=== PATIENT | female | born 1980 | race Caucasian/White ===

== ENCOUNTER 2016-08-15 15:43 | Inpatient (IN) | payer OTHER ==
[~2016-08-15] VITALS: Ht 157.5 cm; Wt 49.9 kg
[~2016-08-15 15:43] MED LIST: BUSPIRONE15 MG PO; HYDROXYZINE PAM25 MG PO; IBUPROFEN800 MG PO; PERCOCET 325 MG1 TA2 PO; SERTRALINE HYDR50 MG PO
--- NOTE | 2016-08-15 16:05 | NUR ---
TRIAGE: PT TO ER C/C PAIN TO R FLANK AND ABDOMEN, ONSET SUNDAY, CONSTANT SINCE ONSET. HX OF KIDNEY STONES, FEELS SAME. +INTERMITTENT NAUSEA, VOMITED SUNDAY BUT NOT SINCE. -DIARRHEA. LNBM YESTERDAY. REPORTS PAIN WITH URINATION AND HEMATURIA ONSET TODAY.
--- NOTE | 2016-08-15 16:06 | NUR ---
Informed waiting has been performed.
--- NOTE | 2016-08-15 16:16 | ED GI/GU/ABDOMINAL COMPLAINT ---
History of Present Illness General Chief Complaint: Abdominal Pain/Flank Pain Stated Complaint: R FLANK PAIN, NAUSEA,FEVER H/O KIDNEY STONES Source: patient, old records Exam Limitations: no limitations Allergies Coded Allergies: hydrocodone (From VICODIN) (Intermediate, NAUSEA 08/15/16) Reconcile Medications No Known Home Medications Triage Note: TRIAGE: PT TO ER C/C PAIN TO R FLANK AND ABDOMEN, ONSET SUNDAY, CONSTANT SINCE ONSET. HX OF KIDNEY STONES, FEELS SAME. +INTERMITTENT NAUSEA, VOMITED SUNDAY BUT NOT SINCE. -DIARRHEA. LNBM YESTERDAY. REPORTS PAIN WITH URINATION AND HEMATURIA ONSET TODAY. Triage Nurses Notes Reviewed? yes ? n Is pt currently ? No HPI: Patient is a 36-year-old female presents complaining of right flank pain. Pain onset on Sunday. Patient is a sharp pain feels similar to his kidney stones. Pain is currently severe, no exacerbating or alleviating factors. Patient has not taken any medication for her symptoms. Associated nausea and vomiting. Patient reports she noticed hematuria today. Intermittent subjective fevers. (MAXX PICHARDO) Vital Signs & Intake/Output Vital Signs & Intake/Output Vital Signs Date Time Temp Pulse Resp B/P Pulse O2 O2 Flow FiO2 Ox Delivery Rate 08/15 1952 98.2 100 18 122/91 98 Room Air 08/15 194 97.3 110 18 122/91 98 08/15 1602 98.5 112 20 123/87 97 Room Air Past History Travel History Traveled to [place] past 21 day No Medical History Any Pertinent Medical History? see below for history Neurological: NONE EENT: NONE Cardiovascular: NONE Respiratory: NONE Gastrointestinal: NONE Hepatic: NONE Renal: nephrolithiasis Musculoskeletal: NONE Psychiatric: anxiety, depression, substance abuse Endocrine: NONE Blood Disorders: NONE Cancer(s): NONE GENERATION TECHNICIAN/Reproductive: NONE Surgical History Surgical History: non-contributory Psychosocial History Who do you live with Mother What is your primary language Portuguese Tobacco Use: Current Daily Use Daily Tobacco Use Amount/Type: => 5 Cigarettes daily ETOH Use: occasional use Illicit Drug Use: denies illicit drug use Family History Hx Contributory? No (MAXX PICHARDO) Review of Systems Review of Systems Constitutional: Reports: fever (subjective). Denies: chills. EENTM: Reports: no symptoms. Respiratory: Denies: cough, short of breath. Cardiovascular: Denies: chest pain. GI: Reports: see HPI, nausea, vomiting. Genitourinary: Reports: see HPI, hematuria. Musculoskeletal: Reports: back pain. Neurological/Psychological: Reports: no symptoms. Hematologic/Endocrine: Reports: no symptoms. Immunologic/Allergic: Reports: no symptoms. (MAXX PICHARDO) Physical Exam Physical Exam General Appearance: well developed/nourished, alert, awake Head: normal appearance Eyes: Bilateral: normal appearance, PERRL, EOMI. Ears, Nose, Throat, Mouth: clear fluid posterior to the right tympanic membrane Neck: normal inspection, supple, full range of motion Respiratory: normal breath sounds, chest non-tender, no respiratory distress, lungs clear Cardiovascular: tachycardia, regular rhythm, no murmur Gastrointestinal: normal bowel sounds, soft, non-tender Back: CVA tenderness (R) Extremities: normal range of motion Neurologic/Psych: no motor/sensory deficits, awake, alert, oriented x 3, normal gait, normal mood/affect Skin: warm/dry Core Measures ACS in differential dx? No Severe Sepsis Present: No Septic Shock Present: No (MAXX PICHARDO) Progress Differential Diagnosis: appendicitis, cholecystitis, kidney stone, ovarian cyst, ovarian torsion, PID/cervicitis, UTI/pyelo Diagnostic Imaging: Viewed by Me: Radiology Read, Ultrasound. Discussed w/RAD: Radiology Read, Ultrasound. Radiology Impression: PATIENT: CHIN DELUCA PRESENT AGE: 36 PATIENT ACCOUNT NO: [id number] : 82 LOCATION: [facility] ORDERING PHYSICIAN: MAXX REYNOSO SERVICE DATE: 08/15/16 EXAM TYPE: US - US-RENAL/KIDNEY EXAMINATION: US RETROPERITONEAL COMPLETE (RENAL) CLINICAL INFORMATION: Right flank pain.. COMPARISON: Plain films 02/25/2016. TECHNIQUE: Real-time imaging of the kidneys and bladder. FINDINGS: RIGHT KIDNEY: 12.7 x 6.4 x 8.0 cm (SAG x AP x TRV). The kidney is normal in size, contour, and echogenicity. Renal cortical thickness is normal. There is a 0.7 x 0.7 x 0.7 cm echogenic calculus at the lower pole. Multiple clustered echogenic foci seen at the midpole. There is moderate hydronephrosis. No ureteral stent is demonstrated the current study. LEFT KIDNEY: 11.0 x 4.8 x 4.8 cm (SAG x AP x TRV). The kidney is normal in size, contour, and echogenicity. Renal cortical thickness is normal. There are multiple echogenic calculi at the upper, mid and lower poles, measuring up to 0.5 cm. There is no hydronephrosis. BLADDER: The patient voided prior to the exam. The ureteral jets were not demonstrated on either side. The prevoid bladder volume is 22 mL. IMPRESSION: 1. There is right-sided hydronephrosis. 2. There are bilateral renal calculi. 3. Ureteral jets were not demonstrated on either side. DICTATED BY: ROMULO MILLER MD DATE/TIME DICTATED:05/22 SUPERVISOR STAVE CUTTING:SHELLY DATE/TIME TRANSCRIBED:08/15/161752 CONFIDENTIAL, DO NOT COPY WITHOUT APPROPRIATE AUTHORIZATION. <Electronically signed in Other Vendor System> SIGNED BY: ROMULO MILLER MD 08/15/16 1800, PATIENT: CHIN DELUCA PRESENT AGE: 36 PATIENT ACCOUNT NO: [id number] : 82 LOCATION: [facility] ORDERING PHYSICIAN: MAXX REYNOSO SERVICE DATE: 08/15/16 EXAM TYPE: RAD - XRY- KIDNEYS, URETERS, BLADDER EXAMINATION: XR KIDNEYS, URETER, BLADDER CLINICAL INDICATION: Right flank pain COMPARISON: 02/25/2016 TECHNIQUE: 2 views FINDINGS: There is a 13 mm calcification overlying the region of the right renal pelvis. Approximately 4 mm calculus overlies the right midpole cortex region of the corticomedullary junction. 2 mm calculus overlies the left upper pole parenchyma. No other radiopaque stone seen. Phlebolith left pelvis. Moderate scoliosis convex left. Lung bases clear. Bowel gas pattern normal. IMPRESSION: Multiple right-sided renal calculi largest measuring 13 mm overlying the renal pelvis. DICTATED BY: CRISTIANO GUTIERREZ MD DATE/TIME DICTATED:08/15/161826 SUPERVISOR STAVE CUTTING:SHELLY DATE/TIME TRANSCRIBED:08/15/161826 CONFIDENTIAL, DO NOT COPY WITHOUT APPROPRIATE AUTHORIZATION. <Electronically signed in Other Vendor System> SIGNED BY: CRISTIANO GUTIERREZ MD 08/15/16 1832, PATIENT: CHIN DELUCA PRESENT AGE: 36 PATIENT ACCOUNT NO: [id number] : 82 LOCATION: [facility] ORDERING PHYSICIAN: MAXX REYNOSO SERVICE DATE: 08/15/16 EXAM TYPE: CAT - CT ABD & PELVIS W/O IV CONTRAS EXAMINATION: CT ABDOMEN AND PELVIS WITHOUT CONTRAST CLINICAL INFORMATION: Renal stones. COMPARISON: None. TECHNIQUE: Multidetector volumetric imaging was performed from the superior aspect of the liver through the pubic symphysis. Sagittal and coronal reformatted images were obtained on the technologist's workstation. DLP: 231 mGy-cm. FINDINGS: LUNG BASES: The visualized lung bases are unremarkable. LIVER, GALLBLADDER, AND BILIARY TREE: The liver is normal in size, shape, and attenuation. No focal hepatic lesion or biliary ductal dilatation is present. The gallbladder is unremarkable with no evidence of radiopaque gallstones, gallbladder wall thickening, or obvious pericholecystic inflammatory changes. PANCREAS: Unremarkable. SPLEEN: Unremarkable. ADRENAL GLANDS: Unremarkable. KIDNEYS AND URETERS: There is notable dilatation of the right urinary tract consistent to the level the UPJ where there is a large approximately 14 mm obstructing calculus. Multiple small intrarenal calculi noted bilaterally. No obstruction on the left. No perinephric abnormality. The left kidney secondarily enlarged. No tandem stone seen along the course of the ureters. BLADDER: Unremarkable. GASTROINTESTINAL TRACT: The small and large bowel are unremarkable. The appendix is unremarkable. ABDOMINAL WALL: No significant hernia is appreciated. LYMPH NODES: Normal. VASCULAR: Unremarkable. PELVIC VISCERA: Unremarkable. OSSEOUS STRUCTURES: Moderate scoliosis convex left. IMPRESSION: Significant obstruction on the right secondary to a 14 mm UPJ calculus. Smaller multiple bilateral intrarenal calculi noted. DICTATED BY: CRISTIANO GUTIERREZ MD DATE/TIME DICTATED:08/15/161910 SUPERVISOR STAVE CUTTING:SHELLY DATE/ TIME TRANSCRIBED:08/15/161910 CONFIDENTIAL, DO NOT COPY WITHOUT APPROPRIATE AUTHORIZATION. <Electronically signed in Other Vendor System> SIGNED BY: CRISTIANO GUTIERREZ MD 08/15/161931 Initial ED EKG: none (GIANFRANCO REYNOSO,MAXX) Plan of Care: Orders Procedure Date/time Status Nothing by Mouth 08/17 B Active Regular Diet 08/16 B Active CBC WITHOUT DIFFERENTIAL 08/16 06 Active BASIC ELECTROLYTES PLUS BUN&CR 08/16 0600 Active Pathway - chart 08/15 2006 Active Patient Data 08/15 2006 Active Code Status 08/15 2006 Active Admit to inpatient 08/15 2001 Active Intake & Output 08/15 1944 Active Add-on Test (ER Only) 08/15 1803 Active CULTURE,URINE 08/15 1730 Active COMPREHENSIVE METABOLIC PANEL 08/15 1630 Complete CBC WITHOUT DIFFERENTIAL 08/15 1630 Complete URINE 08/15 1606 Complete URINALYSIS 08/15 1606 Complete VTE Mechanical Prophylaxis 08/15 UNK Active Vital Signs 08/15 UNK Active Activity/Ambulation 08/15 UNK Active Current Medications Sig/Lazara Start time Last Medication Dose Stop Time Status Admin Ceftriaxone Sodium 1,000 MG DAILY 08/16 1999 AC (Rocephin) Hydromorphone HCl 50 MG Q24H PRN 08/15 2099 AC (Dilaudid) Sodium Chloride 45 ML (Normal Saline 50ML Bag) Hydromorphone HCl 50 MG Q24H PRN 08/15 2014 CAN Sodium Chloride 45 ML (Normal Saline 50ML Bag) Ketorolac 15 MG Q6P PRN 08/15 2014 AC Tromethamine (Toradol) Docusate Sodium 100 MG DAILY 08/15 2005 AC (Colace) Acetaminophen 650 MG Q6PRN PRN 08/15 1999 AC (Tylenol) Ondansetron HCl 4 MG Q8P PRN 08/15 1999 AC (Zofran) Laboratory Tests 08/15/16 1825: Anion Gap 18 H, Estimated GFR 51 L, BUN/Creatinine Ratio 16.7, Glucose 98, Calcium 9.3, Total Bilirubin 0.4, AST 88 H, ALT 111 H, Alkaline Phosphatase 144 H, Total Protein 8.2, Albumin 4.3, Globulin 3.9, Albumin/Globulin Ratio 1.1 , CBC w Diff NO MAN DIFF REQ, RBC 3.91 L, MCV 93.0, MCH 31.0, RDW 13.5, MPV 9.2 , Gran % 75.4 H, Lymphocytes % 13.3 L, Monocytes % 10.7 H, Eosinophils % 0.2, Basophils % 0.4, Absolute Granulocytes 9.1 H, Absolute Lymphocytes 1.6, Absolute Monocytes 1.3 H, Absolute Eosinophils 0, Absolute Basophils 0, PUBS MCHC 33.3 08/15/16 1730: Urinalysis LIGHT H, Urine Color YEL, Urine Clarity HAZY H, Urine pH 6.0, Ur Specific Halsey 1.025, Urine Protein 30 H, Urine Ketones NEG, Urine Nitrite NEG, Urine Bilirubin NEG, Urine Urobilinogen 0.2, Ur Leukocyte Esterase TRACE H , Ur Microscopic SEDIMENT EXAMINED, Urine RBC 15-25 H, Urine WBC 15-25 H, Ur Epithelial Cells FEW, Hyaline Casts 1-3 H, Urine Mucus MOD H, Urine Hemoglobin MOD H, Urine Glucose NEG, Urine Test NEGATIVE Microbiology 08/15 1729 URINE ROUT: Urine Culture - RECD 1830: Patient reports no significant change in symptoms, was medicated approximately 5 minutes ago. Discussed results of ultrasound. Awaiting results of labs and x-ray. 1909: Continues with significant pain. Additional pain medication ordered. 1949: Discussed with Dr. Bauer: will admit patient, give Ceftriaxone. Will contact surgical PA for the admission. Discussed with Dr. Whiting (MAXX PICHARDO) Departure Departure Time of Disposition: 2018 Disposition: STILL A PATIENT Condition: Stable Clinical Impression Primary Impression: Renal colic on right side Secondary Impressions: Acute kidney injury (nontraumatic) Urinary tract infection Qualifiers: Urinary tract infection type: acute pyelonephritis Qualified Code: N10 - Acute pyelonephritis Referrals: PATIENT HAS NO PRIMARY CARE DR (PCP/Family) Departure Forms: Customer Survey General Discharge Information Prescriptions: Current Visit Scripts No Known Home Medications Admission Note Spoke With: JESUS BAUER MD (MAXX PICHARDO) PA/ETCHER MACHINE Co-Sign Statement Statement: ED Attending supervision documentation- [] I saw and evaluated the patient. I have also reviewed all the pertinent lab results and diagnostic results. I agree with the findings and the plan of care as documented in the PA's/ETCHER MACHINE's documentation. [X] I have reviewed the ED Record and agree with the PA's/ETCHER MACHINE's documentation. [] Additions or exceptions (if any) to the PAs/ETCHER MACHINE's note and plan are summarized below: [] (PETROS WATSON,JAYME) PA/ETCHER MACHINE Co-Sign Statement Statement: ED Attending supervision documentation- [] I saw and evaluated the patient. I have also reviewed all the pertinent lab results and diagnostic results. I agree with the findings and the plan of care as documented in the PA's/ETCHER MACHINE's documentation. [x] I have reviewed the ED Record and agree with the PA's/ETCHER MACHINE's documentation. [] Additions or exceptions (if any) to the PAs/ETCHER MACHINE's note and plan are summarized below: [] (DENISHA WATSON,NATA Johnson)
--- NOTE | 2016-08-15 17:12 | NUR ---
PT TO U/S VIA STRETCHER
--- NOTE | 2016-08-15 17:31 | NUR ---
URINE ONTAINED AND SENT TO LAB
--- NOTE | 2016-08-15 17:40 | NUR ---
PT REMAINS AT US AT THIS TIME
--- NOTE | 2016-08-15 17:49 | NUR ---
PT TO XRAY AT [facility] TIME
--- NOTE | 2016-08-15 18:00 | ULTRASOUND REPORT ---
EXAMINATION: US RETROPERITONEAL COMPLETE (RENAL) CLINICAL INFORMATION: Right flank pain.. COMPARISON: Plain films 02/25/2016. TECHNIQUE: Real-time imaging of the kidneys and bladder. FINDINGS: RIGHT KIDNEY: 12.7 x 6.4 x 8.0 cm (SAG x AP x TRV). The kidney is normal in size, contour, and echogenicity. Renal cortical thickness is normal. There is a 0.7 x 0.7 x 0.7 cm echogenic calculus at the lower pole. Multiple clustered echogenic foci seen at the midpole. There is moderate hydronephrosis. No ureteral stent is demonstrated the current study. LEFT KIDNEY: 11.0 x 4.8 x 4.8 cm (SAG x AP x TRV). The kidney is normal in size, contour, and echogenicity. Renal cortical thickness is normal. There are multiple echogenic calculi at the upper, mid and lower poles, measuring up to 0.5 cm. There is no hydronephrosis. BLADDER: The patient voided prior to the exam. The ureteral jets were not demonstrated on either side. The prevoid bladder volume is 22 mL. IMPRESSION: 1. There is right-sided hydronephrosis. 2. There are bilateral renal calculi. 3. Ureteral jets were not demonstrated on either side.
--- NOTE | 2016-08-15 18:27 | NUR ---
PT BACK FROM RADIOLOGY. IV EST. MECICATED PER EMATR AT THIS TIME
--- NOTE | 2016-08-15 18:32 | RADIOLOGY REPORT ---
EXAMINATION: XR KIDNEYS, URETER, BLADDER CLINICAL INDICATION: Right flank pain COMPARISON: 02/25/2016 TECHNIQUE: 2 views FINDINGS: There is a 13 mm calcification overlying the region of the right renal pelvis. Approximately 4 mm calculus overlies the right midpole cortex region of the corticomedullary junction. 2 mm calculus overlies the left upper pole parenchyma. No other radiopaque stone seen. Phlebolith left pelvis. Moderate scoliosis convex left. Lung bases clear. Bowel gas pattern normal. IMPRESSION: Multiple right-sided renal calculi largest measuring 13 mm overlying the renal pelvis.
[2016-08-15 19:05] LABS: ABSOLUTE BASOPHIL COUNT 0 /CUMM (0.0-0.2); ABSOLUTE EOSINOPHIL COUNT 0 /CUMM (0.0-0.7); ABSOLUTE GRANULOCYTE CT 9.1 /CUMM (1.4-6.5); ABSOLUTE LYMPH COUNT 1.6 /CUMM (1.2-3.4); ABSOLUTE MONOCYTE COUNT 1.3 /CUMM (0.10-0.60); BASOPHIL % 0.4 % (0.0-2.0); EOSINOPHIL % 0.2 % (0-5); GRANULOCYTE % 75.4 % (42.2-75.2); HEMATOCRIT 36.3 % (37-47); MEAN CORPUSCULAR HGB CONC 33.3 G/DL (33.0-37.0); MEAN PLATELET VOLUME 9.2 FL (7.4-10.4); PLATELET COUNT 209 /CUMM (130-400); RBC DISTRIBUTION WIDTH 13.5 % (11.5-14.5); RED BLOOD CELL CT 3.91 /CUMM (4.20-5.40)
--- NOTE | 2016-08-15 19:32 | CT SCAN REPORT ---
EXAMINATION: CT ABDOMEN AND PELVIS WITHOUT CONTRAST CLINICAL INFORMATION: Renal stones. COMPARISON: None. TECHNIQUE: Multidetector volumetric imaging was performed from the superior aspect of the liver through the pubic symphysis. Sagittal and coronal reformatted images were obtained on the technologist's workstation. DLP: 231 mGy-cm. FINDINGS: LUNG BASES: The visualized lung bases are unremarkable. LIVER, GALLBLADDER, AND BILIARY TREE: The liver is normal in size, shape, and attenuation. No focal hepatic lesion or biliary ductal dilatation is present. The gallbladder is unremarkable with no evidence of radiopaque gallstones, gallbladder wall thickening, or obvious pericholecystic inflammatory changes. PANCREAS: Unremarkable. SPLEEN: Unremarkable. ADRENAL GLANDS: Unremarkable. KIDNEYS AND URETERS: There is notable dilatation of the right urinary tract consistent to the level the UPJ where there is a large approximately 14 mm obstructing calculus. Multiple small intrarenal calculi noted bilaterally. No obstruction on the left. No perinephric abnormality. The left kidney secondarily enlarged. No tandem stone seen along the course of the ureters. BLADDER: Unremarkable. GASTROINTESTINAL TRACT: The small and large bowel are unremarkable. The appendix is unremarkable. ABDOMINAL WALL: No significant hernia is appreciated. LYMPH NODES: Normal. VASCULAR: Unremarkable. PELVIC VISCERA: Unremarkable. OSSEOUS STRUCTURES: Moderate scoliosis convex left. IMPRESSION: Significant obstruction on the right secondary to a 14 mm UPJ calculus. Smaller multiple bilateral intrarenal calculi noted.
--- NOTE | 2016-08-15 19:44 | NUR ---
PT C/0 05/15 PAIN.PT MEDICATED WITH HYDROMORPHONE PER ORDER.
[2016-08-15 23:00] VITALS: BP 128/74
--- NOTE | 2016-08-15 23:30 | NUR ---
PT C/O 02/12. PT MEDICATED PER ORDER
[2016-08-16 05:39] LABS: ABSOLUTE BASOPHIL COUNT 0 /CUMM (0.0-0.2); ABSOLUTE EOSINOPHIL COUNT 0.1 /CUMM (0.0-0.7); ABSOLUTE GRANULOCYTE CT 6.7 /CUMM (1.4-6.5); ABSOLUTE LYMPH COUNT 1.4 /CUMM (1.2-3.4); ABSOLUTE MONOCYTE COUNT 1.2 /CUMM (0.10-0.60); BASOPHIL % 0.2 % (0.0-2.0); EOSINOPHIL % 0.6 % (0-5); HEMATOCRIT 32.8 % (37-47); MEAN CORPUSCULAR HGB 30.8 PG (27.0-31.0); MEAN CORPUSCULAR VOLUME 93.3 FL (81.0-99.0); MEAN PLATELET VOLUME 8.9 FL (7.4-10.4); PLATELET COUNT 173 /CUMM (130-400); RBC DISTRIBUTION WIDTH 14.1 % (11.5-14.5); RED BLOOD CELL CT 3.52 /CUMM (4.20-5.40); WHITE BLOOD CELL COUNT 9.4 /CUMM (4.8-10.8)
[2016-08-16 05:59] VITALS: BP 124/73
--- NOTE | 2016-08-16 08:38 | NUR ---
INFORMED WAITING HAS BEEN PERFORMED
--- NOTE | 2016-08-16 09:01 | NUR ---
PER DR. MORALES'S OFFICE PT TO GO TO OR [facility] AND TO BE NPO AFTER MIDNIGHT. SURGICAL PA TO UPDATE DIET ORDER
--- NOTE | 2016-08-16 10:53 | NUR ---
BED ASSIGNMENT [id number]
--- NOTE | 2016-08-16 11:56 | NUR ---
REPORT GIVEN TO NOVEMBER ON 2NB
[2016-08-16 15:51] VITALS: BP 116/74
--- NOTE | 2016-08-16 15:54 | NUR ---
CALL PLACED TO DR KIRBY OFFICE AT THIS TIME, MESSAGE LEFT WITH APPRENTICE PAINTER BRUSH TO CALL THIS NURSE BACK DUE TO C/O'S OF 10/10 PAIN DESPITE PRN PAIN MEDS
--- NOTE | 2016-08-16 17:07 | NUR ---
ORDER PLACED AT THIS TIME BY ANDREW FOR DILANTIN IM FOR PAIN ? CALL PLACED TO DR KIRBY OFFICE AT THIS TIME TO CLARIFY\QUESTION ORDER. UNABLE TO SPEAK TO ANDREW PRECISION STRUCTURAL METAL FITTER STATES HE IS IN A SURGERY. MESSAGE LEFT TO CALL BACK. SPOKE WITH PHARMACY AT THIS TIME, ORDER WILL NOT BE ACKNOWLEDGED.
--- NOTE | 2016-08-16 18:51 | NUR ---
CALL PLACED T0 SURGICAL PA PT CRYING IN PAIN STATING PAIN IS STILL 10/10, HAVE NOT HEARD BACK FROM MORALES. SURGICAL PA CHELI STATED OK TO GIVE DILAUDID PO, AWAITING ORDER
[2016-08-17 00:35] VITALS: BP 122/78
--- NOTE | 2016-08-17 07:08 | Cons- Urology ---
General Information and HPI Consulting Request Date of Consult: 08/16/16 Requested By: Patti العلي GREGORY-ER Reason for Consult: SEVERE RENAL COLIC WITH OBSTRUCTION Source of Information: patient Exam Limitations: no limitations History of Present Illness: 36 YEAR OLD WITH RENAL STONE AND STENT: ADMITTED FOR PAIN MANAGEMENT AWAITING LASER, AND SEPSIS STABILIZATION FOR URETEROSCOPY/STENT REMOVAL-CHANGE. Allergies/Medications Allergies: Coded Allergies: hydrocodone (From VICODIN) (Intermediate, NAUSEA 08/15/16) Home Med List: No Known Home Medications Current Medications: Current Medications Sig/Lazara Start time Last Medication Dose Route Stop Time Status Admin Acetaminophen 650 MG Q6PRN PRN 08/15 1999 AC PO Ceftriaxone Sodium 1,000 MG DAILY 08/16 1999 AC 08/16 IV 2009 Dextrose/Sodium 1,000 ML .Q10H 08/15 1999 AC 08/17 Chloride IV 0115 Docusate Sodium 100 MG DAILY 08/15 2005 AC PO Hydromorphone HCl 2 MG Q3P PRN 08/16 190 AC PO Hydromorphone HCl 4 MG Q3P PRN 08/16 1900 AC 08/17 PO 0158 Hydromorphone HCl 0 .STK-MED ONE 08/16 1027 CAN .ROUTE Hydromorphone HCl 0 .STK-MED ONE 08/16 0809 DC .ROUTE Hydromorphone HCl 1 MG Q2-3 HRS NEEDED.. 08/15 2300 AC 08/17 IV 0536 Influenza Virus 0.5 ML ONCE ONE 08/16 0945 DC Vaccine IM 08/16 0946 Ketorolac 30 MG .STK-MED ONE 08/16 2258 DC Tromethamine IM 08/16 2259 Ketorolac 30 MG .STK-MED ONE 08/16 1615 DC Tromethamine IM 08/16 1616 Ketorolac 0 .STK-MED ONE 08/16 1026 DC Tromethamine .ROUTE Ketorolac 15 MG Q6P PRN 08/15 2014 AC 08/17 Tromethamine IV 0612 Ondansetron HCl 4 MG Q8P PRN 08/15 1999 AC IV Phenytoin 2 MG 5 TIMES A DAY PRN 08/16 1700 CAN IM Zolpidem Tartrate 5 MG AT BEDTIME 08/16 0015 AC 08/16 PO 2008 Past History Medical History Neurological: NONE EENT: NONE Cardiovascular: NONE Respiratory: NONE Gastrointestinal: NONE Hepatic: NONE Renal: nephrolithiasis Musculoskeletal: NONE Psychiatric: anxiety, depression, substance abuse Endocrine: NONE Blood Disorders: NONE Cancer(s): NONE 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 Home Services at Home: None Smoking Status: Current Everyday Smoker ETOH Use: occasional use Illicit Drug Use: denies illicit drug use Employment History Retired? no Review of Systems Review of Systems Constitutional: Reports: chills. EENTM: Denies: no symptoms. Cardiovascular: Denies: no symptoms. Respiratory: Denies: no symptoms. GI: Reports: abdominal pain, bloating, constipation. Genitourinary: Reports: dysuria, frequency. Musculoskeletal: Denies: no symptoms. Skin: Denies: no symptoms. Neurological/Psychological: Denies: no symptoms. Exam & Diagnostic Data Vital Signs and I&O Vital Signs Date Time Temp Pulse Resp B/P Pulse O2 O2 Flow FiO2 Ox Delivery Rate 08/17 0035 98.8 104 22 122/78 95 Room Air 08/16 1551 98.7 102 21 116/74 95 Room Air 08/16 0717 100.8 105 20 124/73 94 Intake & Output 08/17 0800 08/17 0000 08/16 1600 08/16 0800 08/16 0000 08/15 1600 Intake Total 600 480 800 1 Output Total Balance 600 480 800 1 Intake, IV 800 1 Intake, Oral 600 480 Patient 110 lb 110 lb Weight Physical Exam General Appearance: well developed/nourished Head: atraumatic Neck: normal inspection Respiratory: normal breath sounds Cardiovascular: regular rate/rhythm Back: CVA tenderness (R) Extremities: normal inspection Skin: intact, normal color, warm/dry Reproductive: Normal female genitalia Imaging Results: PATIENT: CHIN DELUCA PRESENT AGE: 36 PATIENT ACCOUNT NO: [id number] : 82 LOCATION: [facility] ORDERING PHYSICIAN: MAXX REYNOSO SERVICE DATE: 08/15/16 EXAM TYPE: CAT - CT ABD & PELVIS W/O IV CONTRAS EXAMINATION: CT ABDOMEN AND PELVIS WITHOUT CONTRAST CLINICAL INFORMATION: Renal stones. COMPARISON: None. TECHNIQUE: Multidetector volumetric imaging was performed from the superior aspect of the liver through the pubic symphysis. Sagittal and coronal reformatted images were obtained on the technologist's workstation. DLP: 231 mGy-cm. FINDINGS: LUNG BASES: The visualized lung bases are unremarkable. LIVER, GALLBLADDER, AND BILIARY TREE: The liver is normal in size, shape, and attenuation. No focal hepatic lesion or biliary ductal dilatation is present. The gallbladder is unremarkable with no evidence of radiopaque gallstones, gallbladder wall thickening, or obvious pericholecystic inflammatory changes. PANCREAS: Unremarkable. SPLEEN: Unremarkable. ADRENAL GLANDS: Unremarkable. KIDNEYS AND URETERS: There is notable dilatation of the right urinary tract consistent to the level the UPJ where there is a large approximately 14 mm obstructing calculus. Multiple small intrarenal calculi noted bilaterally. No obstruction on the left. No perinephric abnormality. The left kidney secondarily enlarged. No tandem stone seen along the course of the ureters. BLADDER: Unremarkable. GASTROINTESTINAL TRACT: The small and large bowel are unremarkable. The appendix is unremarkable. ABDOMINAL WALL: No significant hernia is appreciated. LYMPH NODES: Normal. VASCULAR: Unremarkable. PELVIC VISCERA: Unremarkable. OSSEOUS STRUCTURES: Moderate scoliosis convex left. IMPRESSION: Significant obstruction on the right secondary to a 14 mm UPJ calculus. Smaller multiple bilateral intrarenal calculi noted. Assessment/Plan Assessment/Plan RIGHT UPJ STONE -LARGE WITH OBSTRUCTION DESPITE STENT. ADMIT FOR ABX- OPTIMIZATION FOR PLANNED URETEROSCOPY-LASER Copies To: JESUS MORALES MD Consult Acknowledgment - Thank you for your consult request. Attending MD Review Statement Attending Statement Attending MD Statement: examined this patient, discuss w/resident/PA/MAGISTERIAL DISTRICT JUDGE Attending Assessment/Plan: RIGHT UVJ STONE WITH OBSTRUCTION DESPITE STENT: ADMIT FOR PAIN MANAGEMENT AND IV ABX/HYDRATION TO OPTIMIZE FOR PLANNED URETEROSCOPY-LASER.
[2016-08-17 08:32] VITALS: BP 100/60
--- NOTE | 2016-08-17 14:32 | NUR ---
nsg note: patient requesting nicotine patch; this rn called Dr. Swann office mulitple times with no answer; patient frustrated at this time
[2016-08-17 16:33] VITALS: BP 108/68
--- NOTE | 2016-08-17 16:40 | NUR ---
NSG NOTE: PATIENT LEFT VIA STRETCHER FOR OR ACCOMPANIED BY DISTRIBUTION; PATIENT A/OX3, RA, TEMP OF 101.6; THIS RN CALLED OR TO MAKE AWARE; THIS RN ADMINISTERED TYLENOL 650 MG (SURGICAL PA AWARE); OR CHECKLIST COMPLETED, OR SCRUB COMPLETE; PATIENT STATES SHES IN PAIN 10/10; PATIENT MEDICATED BY THIS RN PRIOR TO LEAVING FLOOR; WILL CONT TO MONITOR PATIENTS RETURN TO FLOOR;
--- NOTE | 2016-08-17 19:33 | Operative Report ---
Operative/Inv Procedure Report Surgery Date: 08/17/16 Name of Procedure: CYSTO: RIGHT RETROGRADE PYELOGRAM, RIGHT URETEROSCOPY WITH LASER STANDBY, RIGHT STENT INSERTION. FLUOROSCOPY Pre-Operative Diagnosis: RIGHT SEVERE COLIC, OBSTRUCTING URETER STONE AND SEPSIS Post-Operative Diagnosis: SAME Estimated Blood Loss: scant Surgeon/Director Of Event Management: JESUS MORALES MD Anesthesia: laryngeal mask airway Specimens: RIGHT RENAL PELVIS ASPIRATE Complications: NONE Operative/Procedure Note Note: The patient was taken to the operating room and placed on the OR table in supine position. With the patient awake, timeout was performed in order to confirm; correct patient, correct procedure, as well as correct laterality, and other pertinent xavi-operative information. After adequate anesthesia and antibiotics , the patient was then placed lithotomy stirrups, draped and prepped in the usual surgical fashion. A 22 Belizean cystoscope sheath with 30 angle lens was inserted into the bladder without difficulty. Upon entering the bladder, the bladder was noted to be free of tumor free of stone. Both orifices were in their orthotopic position. The right ureter orifice was intubated with an 8fr cone-tip catheter, and a retrograde pyelogram with fluoroscopy was performed. An 14 mm right proximal ureter filling defect c/w stone was visualized, as well as, mild right proximal hydronephrosis. The cone-tipped catheter was removed, followed by insertion of a 0.035 Glidewire, which was advanced into the right renal pelvis without difficulty. At this point, the stone was manipulated into the right LP, and large amount of purulent material was drained. Placement of the wire was confirmed on fluoroscopy. Leaving the Glidewire in place, the cystoscope was removed. Using a rigid Micro-6 ureteroscope, the bladder was then re-entered under direct visualization. The rigth ureter orifice was clearly visible, and wide open. The ureteroscope was ealily advanced/inserted into the open ureter under direct visualization. The ureteroscope was advanced easily and gently into the proximal ureter, and the large ureteral stone was visualized. Under direct visualization the 400 g holmium YAG laser fiber was inserted through the ureteroscope. Unfortunately, the laser fiber could NOT be placed in direct contact with the stone, due to the angle. Having to abandon the laser lithotrypsy portion of this surgery, the ureteroscope was then gently extracted, leaving the gluide wire in place. The entire length of the ureter was aslo visualize carefully on the way out with the ureteroscope, and the same findings of no stones or tumor was confirmed. The 22 Belizean cystoscope sheath with a 30 angle lens was then reinserted into the bladder, with the Glidewire back loaded into the scope. A 6 x 22 Bard Opti- Lay ureteral stent was inserted over the Glidewire. With the proximal coil advanced into the right renal pelvis, confirmed on fluoroscopy, and the distal coil seen in the bladder, cystoscopically, the Glidewire was removed and the stent remained in proper place. The bladder was then drained, and the cystoscope was removed. The patient tolerated the procedure well was then taken to the recovery room in satisfactory condition. The patient is to follow up in 1-2 weeks for right ESWL, and possible stent removal. Findings: 14MM STONE MANIPULATED TO RIGHT RENAL PELVIS Discharge Disposition: PACU CC: ANDREW WATSON,JESUS
--- NOTE | 2016-08-17 23:23 | RADIOLOGY REPORT ---
EXAMINATION: XR KIDNEYS, URETER, BLADDER CLINICAL INDICATION: Right cystoscopy COMPARISON: CT 08/15/2016 TECHNIQUE: 2 fluoroscopic images of the abdomen were submitted. Total fluoroscopic time 1.1 minutes. FINDINGS: There is a prominent calcification in the region of the right renal pelvis, corresponding to the calculus seen on the recent CT. Small amount of contrast is injected into the collecting system. Lower pole calculus also noted. IMPRESSION: Fluoroscopic guidance for right cysto.
[2016-08-17 23:39] VITALS: BP 100/62
--- NOTE | 2016-08-17 23:45 | NUR ---
2030 PT BACK FROM OR A/OX3, VSS, RA, REPORTER ANCHOR IN PLACE, IVF RUNNING, PAIN 09/15. WILL CONTINUE TO MONITOR
[2016-08-18 08:11] LABS: ABSOLUTE BASOPHIL COUNT 0 /CUMM (0.0-0.2); ABSOLUTE EOSINOPHIL COUNT 0 /CUMM (0.0-0.7); ABSOLUTE GRANULOCYTE CT 7.6 /CUMM (1.4-6.5); ABSOLUTE LYMPH COUNT 1.2 /CUMM (1.2-3.4); BASOPHIL % 0 % (0.0-2.0); EOSINOPHIL % 0 % (0-5); GRANULOCYTE % 78.1 % (42.2-75.2); HEMATOCRIT 30.3 % (37-47); MEAN CORPUSCULAR HGB 31.4 PG (27.0-31.0); MEAN CORPUSCULAR HGB CONC 33.8 G/DL (33.0-37.0); MEAN CORPUSCULAR VOLUME 92.7 FL (81.0-99.0); MEAN PLATELET VOLUME 8.5 FL (7.4-10.4); PLATELET COUNT 239 /CUMM (130-400); RBC DISTRIBUTION WIDTH 14.6 % (11.5-14.5); RED BLOOD CELL CT 3.26 /CUMM (4.20-5.40); WHITE BLOOD CELL COUNT 9.7 /CUMM (4.8-10.8)
[2016-08-18 08:33] VITALS: BP 122/80
[2016-08-18] MEDS ORDERED: CIPRO500 M1 PO (08:39)
[2016-08-18] MEDS ORDERED: DILAUDID2 M1 PO (08:39)
[2016-08-18] MEDS ORDERED: PHENAZOPYRIDIN100 M3 PO (08:39)
[2016-08-18 16:18] VITALS: BP 129/90
[2016-08-18 23:43] VITALS: BP 118/76
[2016-08-19 08:27] VITALS: BP 124/67
--- NOTE | 2016-08-31 12:39 | Surgical Discharge Summary ---
Visit Information Visit Dates Admission Date: 08/15/16 Discharge Date: 08/19/16 History of Present Illness Chief Complaint: severe colic with sepsis due to obstructing right ureter stone. 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 Home Who Do You Live With? Mother Services at Home: None What is Your Primary Language? [place] ETOH Use: occasional use Illicit Drug Use History: denies Other Addictive Behavior: denies Review of Systems: see hpi: overall wnl except for right obst. kidney with sepsis. Physical Exam: thin mod distress: vss temp at 100.4F. heent: wnl cv: rrr lungs: clear bilat abd: soft back: right cvat severe pelvic: wnl ext: wnl Hospital Course Course Attending Physician: JESUS MORALES MD Primary Care Physician: PATIENT HAS NO PRIMARY CARE DR Hospital Course: admitted to medicine for treatment of sepsis: now post stent with drainage of purulent material Complications: none Allergies: Coded Allergies: hydrocodone (From VICODIN) (Intermediate, NAUSEA 08/15/16) Significant Procedures: stent on right Disposition Summary Disposition Principal Diagnosis: sepsis with obstructed right kidney Additional Diagnosis: right ureter stone with hydro. Discharge Disposition: home or self care Discharge Instructions General Discharge Information Code Status: Full Code Patient's Diet: regular Patient's Activity: as tolerated Follow-Up Instructions/Appts: f/u 4weeks for right ESWL Medications at Discharge Discharge Medications: Start taking the following new medications: Phenazopyridine HCl (Phenazopyridine HCl) 100 MG TABLET 100 Milligram ORAL 4 TIMES A DAY as needed for dysuria Days = 28 No Refills Comments: LAST GIVEN 08/19/16 @ 0617 Hydromorphone HCl (Dilaudid) 2 MG TABLET 0.5 Tablet ORAL Every 3-4 hours as needed for SEVERE PAIN Days = 10 No Refills Comments: LAST GIVEN 08/19/16 @ 0625 Ciprofloxacin HCl (Cipro) 500 MG TABLET 1 Tablet ORAL TWICE DAILY Days = 2 No Refills Comments: NOT GIVEN Copies To: JESUS MORALES MD Attending MD Review Statement Attending Statement Attending MD Statement: examined this patient, discuss w/resident/PA/MACHINE LEARNING INTERN Attending Assessment/Plan: right obst. kidney with sepsis: now resolved and pt improved/stable.
[2016-11-15] MEDS ORDERED: POTASSIUM CITR15 ME1 (11:14)
== END 2016-08-19 13:26 | DRG 465 ==
LOC: ENRESERVTM → ENRESERVDT → ERH 15:43 → ERHI 20:02 → EDPENDDISDT 20:02 → EDPENDDISTM 20:02 → ENPENDDIS 20:02 → 2NB 20:02 → ERHI 08-16 07:59 → 2NB 08-16 12:44
PROVIDERS: Nurse Practitioner; Physician Assistant; ADMIT Urology
DX: N13.2 Hydronephrosis with renal and ureteral calculous obstruction (principal); N17.9 Acute kidney failure, unspecified; F17.200 Nicotine dependence, unspecified, uncomplicated
CPT/HCPCS: 2NBSP; ERO; 36415; 74000; 74176; 76775; 81001; 81025; 82436; 87086; 96374; 96375; 96376; C2617; J0696; J1170; J1200; J1885; J2405; J7042; Q2036

== ENCOUNTER → 2016-08-29 | Day surgery (SDC) | payer OTHER ==
[~2016-08-29] VITALS: Ht 157.5 cm; Wt 49.9 kg
[~2016-08-29] MED LIST changes: +CIPRO500 M1 PO; +DILAUDID2 M1 PO; +PHENAZOPYRIDIN100 M3 PO; +POTASSIUM CITR15 ME1
--- NOTE | 2016-08-29 14:24 | Operative Report ---
Operative/Inv Procedure Report Surgery Date: 08/29/16 Name of Procedure: right ureter eswl. fluoroscopy Pre-Operative Diagnosis: large 14mm right proximal ureter stone. Post-Operative Diagnosis: same: no hydro. Estimated Blood Loss: n/a Surgeon/Intraoperative Neuro Tech: JESUS MORALES MD Anesthesia: moderate sedation Complications: none Operative/Procedure Note Note: The patient was taken to the operating room and placed on the ESWL table in supine position. With the patient awake, timeout was performed to cofirm correct identity, procedure, laterality, anesth., and other pertinent xavi- operative information. The patient's RIGHT flank was placed over the table cut -out, overlying the dome of the shockwave generator. C-arm fluroscopy, as well as renal US, was used to locate the stone, and evaluate the RIGHT kidney. The stone was clearly visible on fluoroscopy at the distal right ureter, measuring approximately 14 mm stone burden. Renal US confimred resolution of right hydronephrosis with stent, and one additional 6 mm stone at MP, no tumor, seen in the right kidney. After adequate anesthesia, the right ureter stone's position was optimized for Shockwave lithotrypsy using fluoroscopy in AP and oblique views. The E.S.W.L. was initiated at low power levels x 200 shocks. After noting the patient's tolerance to the shockwaves, the shock wave power level was quickly maximized. Toward the end of the procedure, the composition of the stone had changed indicating the breaking of the ureter stone. A total of 3000 shockwaves were delivered to the stone in order to achieve adequate lithotrypsy. The patient tolerated the procedure well, was awakened, and taken to recovery in satisfactory condition via stretcher. The pt will be dischared home with pain meds, diet orders, and intructions to catch fragments with straining the urine. The patient is to have follow-up renal ultrasound and KUB in 1-2 weeks, prior to follow-up visit in my office. Findings: 14mm right proximal ureter stone: right MP 6mm stone. Discharge Disposition: Same Day Admissions CC: JESUS MORALES MD
== END ==
LOC: STS 01:54
DX: N13.2 Hydronephrosis with renal and ureteral calculous obstruction (principal); F17.200 Nicotine dependence, unspecified, uncomplicated
CPT/HCPCS: 81025; J1170; J2250

== ENCOUNTER → 2016-11-09 | Day surgery (SDC) | payer OTHER ==
[~2016-11-09] VITALS: Ht 157.5 cm; Wt 49.9 kg
--- NOTE | 2016-11-09 16:04 | Operative Report ---
Operative/Inv Procedure Report Surgery Date: 11/09/16 Name of Procedure: cystoscopy: right ureteroscpopy with laser lithotrypsy of ureter stone, right stent exchange, right retrograde pyelogram with fluoroscopy. Pre-Operative Diagnosis: Right ureter stone and stent. Post-Operative Diagnosis: Same Estimated Blood Loss: less than 50ml Surgeon/Metal Weigher: JESUS MORALES MD Anesthesia: laryngeal mask airway Specimens: Right ureter stone, and old stent Condition: None Operative/Procedure Note Note: The patient was taken to the operating room and placed on the OR table in supine position. With the patient awake, timeout was performed in order to confirm; correct patient, correct procedure, as well as correct laterality, and other pertinent xavi-operative information. After adequate anesthesia and antibiotics , the patient was then placed lithotomy stirrups, draped and prepped in the usual surgical fashion. A 22 Cymraes cystoscope sheath with 30 angle lens was inserted into the bladder without difficulty. Upon entering the bladder, the bladder was noted to be free of tumor free of stone. Both orifices were in their orthotopic position. The right ureteral stent was noted to protrude from the right ureteral orifice. The stent was grasped with an alligator forcep, and the cystoscope along with the old right stent was removed intact. The cystoscope was then reinserted. The right ureter orifice was intubated with an 8fr cone-tip catheter, and a retrograde pyelogram with fluoroscopy was performed. An 10 mm right distal ureter filling defect c/w stone was visualized , with no hydronephrosis. 2 additional stones were seen at the lower pole of the kidney, both measuring 6 mm in size. The cone-tipped catheter was removed, followed by insertion of a 0.035 Glidewire, which was advanced into the right renal pelvis without difficulty. Placement confirmed on fluoroscopy. Leaving the Glidewire in place, the cystoscope was removed. Using a rigid Micro-6 ureteroscope, the bladder was then re-entered under direct visualization. The rigth ureter orifice was clearly visible, and wide open. The ureteroscope was ealily advanced/inserted into the open ureter under direct visualization. The ureteroscope was advanced easily and gently into the proximal ureter, and the large ureteral stone was visualized. Under direct visualization the 400 g holmium YAG laser fiber was inserted through the ureteroscope. With the laser fiber in direct contact with the stone, laser lithotripsy was performed in order to pulverize the stone into multiple tiny fragments. The fragments were all flushed out and sent to pathology for analysis. At this point, the ureteroscope was then gently advanced into the right renal pelvis without difficulty. No other stones, nor any tumor was visualized in the renal pelvis. The entire length of the ureter was aslo visualize carefully on the way out with the ureteroscope, and the same findings of no stones or tumor was confirmed. The 22 Cymraes cystoscope sheath with a 30 angle lens was then reinserted into the bladder, with the Glidewire back loaded into the scope. A 6 x 22 Bard Opti- Lay ureteral stent was inserted over the Glidewire. With the proximal coil advanced into the right renal pelvis, confirmed on fluoroscopy, and the distal coil seen in the bladder, cystoscopically, the Glidewire was removed and the stent remained in proper place. The bladder was then drained, and the cystoscope was removed. The patient tolerated the procedure well was then taken to the recovery room in satisfactory condition. The patient is to follow up in 1-2 weeks for stent removal. Findings: 1 cm distal ureter stone lithotripsied. New 6 x [address] Discharge Disposition: PACU CC: JESUS MORALES MD
--- NOTE | 2016-11-09 17:20 | RADIOLOGY REPORT ---
EXAMINATION: INTRAOPERATIVE FLUOROSCOPY DURING BILATERAL RETROGRADE NEPHROURETEROGRAM, RIGHT URETEROSCOPY WITH LASER LITHOTRIPSY AND RIGHT URETERAL STENT EXCHANGE. CLINICAL INDICATION: History of right renal stones and right ureteral stent. COMPARISON: Abdominal radiograph 08/17/2016. TECHNIQUE: The procedure was performed by Dr. Bauer in the operating room. FLUOROSCOPY TIME: 57 seconds. FINDINGS: Several fluoroscopic spot images were obtained. Calcifications are noted in the region of the right ureterovesicular junction and the lower pole of the right kidney. A right ureteral stent was placed. The proximal pigtail is within the area of the renal pelvis and distal pigtail within the urinary bladder. Retrograde left nephroureterogram demonstrates patent ureter and renal collecting system. IMPRESSION: Intraoperative fluoroscopy was utilized by Dr. Bauer during right ureteroscopy and laser lithotripsy, right ureteral stent exchange and bilateral retrograde nephroureterograms. Please refer to the operative report for a detailed description of the procedure and the real-time findings made and acted upon by the surgeon.
== END ==
LOC: STS 11-02 01:04
DX: N20.1 Calculus of ureter (principal); N28.9 Disorder of kidney and ureter, unspecified; F17.200 Nicotine dependence, unspecified, uncomplicated
CPT/HCPCS: 74000; 81025; 82355; C2617; J1100; J1885; J2250; J2405

== ENCOUNTER → 2016-11-21 | Day surgery (SDC) | payer OTHER ==
[~2016-11-21] VITALS: Ht 157.5 cm; Wt 49.9 kg
--- NOTE | 2016-11-21 10:26 | Operative Report ---
Operative/Inv Procedure Report Surgery Date: 11/21/16 Name of Procedure: right renal ESWL. FLUOROSCOPY: cystoscopy-right stent removal Pre-Operative Diagnosis: right renal 1.5cm stone: right stent Post-Operative Diagnosis: same Estimated Blood Loss: scant Surgeon/Hr Generalist: JESUS MORALES MD Anesthesia: moderate sedation Specimens: right stent Complications: NONE Operative/Procedure Note Note: The patient was taken to the operating room and placed on the ESWL table in supine position. The patient's right flank was positioned over the table cut- out overlying the dome of the treatment head. Timeout was performed, with the patient awake, in order to confirm the correct identity, side, anesthesia, procedure and other pertinent xavi-operative information. The patient was then anesthesized. Once the patient was adequately sedated, fluoroscopy, as well as Renal ultrasound was used to locate the right renal stone. Renal US was used to confirm the placement of the stone, and measured it to be approximately 15 mm in size at the right renal pelvis. Additionally, renal U/S revealed no hydronephrosis, and no solid tumor. With the stone's position optimized, using AP and oblique fluoroscopy views, the right renal E.S.W.L. was initiated at low energy level. After noting the patient's tolerance to the shockwaves, the intensitiy was ramped up to maximum level. At the end of the procedure, the composition of the right renal stone had changed significantly, indicating the shattering of the renal stone. Of note, a total of 2500 shockwaves were delivered to the stones. The patient was then frog legged, draped and prepped in the usual surgical fashion. A 22 Qatari cystoscope sheath with a 30 angle lens was inserted into the urethra and into the bladder without difficulty. The right ureteral orifice had a stent protruding from it, which was grasped with an alligator forcep. The cystoscope along with entire stent was removed without difficulty. The patient tolerated the procedures well, was awakened, then taken to recovery in satisfactory condition via stretcher. The patient was dischared home with pain medications, diet orders, and intructions to catch fragments by straining the urine. The patient to to have follow-up renal ultrasound and KUB in 1 to 2 weeks, prior to follow-up visit in my office. Findings: right renal stone shattered: dust only post ESWL visible Discharge Disposition: Same Day Admissions CC: ANDREW WATSON,JESUS
== END ==
LOC: STS 01:35
DX: N20.0 Calculus of kidney (principal); F17.200 Nicotine dependence, unspecified, uncomplicated
CPT/HCPCS: 81025; J0696; J2250

== ENCOUNTER → 2016-12-19 | Day surgery (SDC) | payer OTHER ==
[~2016-12-19] VITALS: Ht 157.5 cm; Wt 49.9 kg
--- NOTE | 2016-12-19 14:44 | Operative Report ---
Operative/Inv Procedure Report Surgery Date: 12/19/16 Name of Procedure: left renal ESWL. fluoroscopy Pre-Operative Diagnosis: left renal stone Post-Operative Diagnosis: same Estimated Blood Loss: none Surgeon/Rib Chopper: JESUS MORALES MD Anesthesia: moderate sedation Drains: none Specimens: none Complications: none Operative/Procedure Note Note: The patient was taken to the operating room and placed on the ESWL table in supine position. With the patient awake and participating, timeout was performed to confirm correct identity, procedure, laterality, anesthesia, and other pertinent xavi-operative information. After adequate anesthesia, the patient was positioned so that the patient's left flank was positioned over the table cut-out, overlying the dome of the treatment head. Once the patient was adequately sedated, fluoroscopy, as well as Renal ultrasound was used to locate the LEFT renal stone. Renal US confirmed the presence of the stone which measured it to be approximately 6 mm upper pole stone. The stone was visible with fluoroscopy. Renal US revealed, no hydronephrosis, and no solid tumor, and presence of the stone. The position of the stone was optimized by using fluoroscopy in AP and oblique views;placing the stone within the ESWL c-arm crosshairs. Once the stone's position was optimized, the LEFT renal E.S.W.L. was initiated at low energy level. After noting the patient's tolerance to the shockwaves, the intensitiy was ramped up to maximum level. At the end of the procedure, the left renal stone had dissintegrated. Of note, a total of 2500 shockwaves were delivered to the stone. The patient tolerated the ESWL procedures well, was awakened, then taken to recovery in satisfactory condition via stretcher. The patient was dischared home with pain medications, diet orders, and intructions to catch fragments by straining the urine. The patient to to have follow-up renal ultrasound and KUB in 1 to 2 weeks, prior to follow-up visit in my office. He will then proceed with metabolic stone work-up. Discharge Disposition: Same Day Admissions CC: JESUS MORALES MD
== END ==
LOC: STS 03:40
DX: N20.0 Calculus of kidney (principal); F17.200 Nicotine dependence, unspecified, uncomplicated
CPT/HCPCS: 81025; J2250

== ENCOUNTER → 2017-02-13 | Day surgery (SDC) | payer OTHER ==
[2008-05-08 08:24] VITALS: BP 114/67
--- NOTE | 2017-02-13 16:05 | Operative Report ---
Operative/Inv Procedure Report Surgery Date: 02/13/17 Name of Procedure: left renal ESWL: cystoscopy: RIGHT fluoroscopy-no stent Pre-Operative Diagnosis: left stone: right=no stone, no stent Post-Operative Diagnosis: same Estimated Blood Loss: scant Surgeon/Garment Looper: JESUS MORALES MD Anesthesia: moderate sedation Complications: none Operative/Procedure Note Note: The patient was taken to the operating room and placed on the ESWL table in supine position. Timeout was performed, with the patient awake, in order to confirm correct patients identity, procedure, laterality, anesthesia, and other pertinent perioperative information. After adequate anesthesia and antibiotics, the patient was then positioned so that the LEFT Flank was exposed over the ESWL table's cut-out, overlying the dome of the shockwave generator. Fluroscopy, as well as renal US, was used to locate the stone, and LEFT stent. Using fluoroscopy with AP, and oblique views, the position of the left renal stone was confirmed and optimized in the crosshairs. The stone was approximately 7 mm in size, and was faintly visible on fluroscopy. Renal ultrasound was also performed on the left side, confirming the presence of the left stone and no hydronephrosis, with normal parenchyma, and no solid tumor. Flurosocpy was used in an AP and oblique views to maximize the position of the stone for ESWL. After optimized positioning, ESWL was initiated at low power levels. After noting the patient's tolerance to the shockwaves, the power was maximized. The renal stone was noted to bounce/move with each shockwave with real-time renal US visualization. Toward the end of the procedure, the composition of the left stones had changed significantly, indicating the breaking of the left renal stone. A total of 2500 shockwaves were delivered to the stone. Fluorosocpy or the right side revealed no stone: no stent. The patient was then placed in a frog-leg position, draped and prepped in the usual surgical fashion. A well lubricated, 22 English cystoscope sheath with 30 angle lens was inserted without difficulty. On entering the bladder the bladder was noted to be free of tumor, and free of stone. Both ureteral orifices were in their ortotopic positions. The cystoscope was then gently removed without difficulty. All sponge, needle, and instrument count were correct at the end of the case. Discharge Disposition: Same Day Admissions CC: ANDREW WATSON,JESUS
== END ==
LOC: STS 07:00
DX: N20.0 Calculus of kidney (principal); F17.200 Nicotine dependence, unspecified, uncomplicated
CPT/HCPCS: 81025; J2250